=== PATIENT | female | born 1950 | race Caucasian/White ===

== ENCOUNTER 2021-04-10 18:03 | Inpatient (IN) | payer OTHER ==
[2021-04-10] MEDS ORDERED: SODIUM CHLORIDE 0.9% 500 ML INFUS.BAG IV ONE (18:43)
[2021-04-10 19:03] LABS: VENOUS BASE EXCESS 1.8 mmol/L (-2-2); VENOUS O2 SATURATION 33.1 % (70-80); VENOUS PCO2 41.4 mmHg (38-52); VENOUS PH 7.423 (7.310-7.410)
[2021-04-10 19:05] LABS: BASO % 0.8 % (0-2.0); EOS % 1.2 % (0-4.5); HEMOGLOBIN 12.9 GM/dL (10.7-15.3); LYMPH % 9.6 % (8-40); MCH 31.2 pg (25.7-33.7); MEAN CELL VOLUME 91.7 fl (80-96); MEAN PLT VOLUME 9.2 fl (7.5-11.1); NEUT % 80.4 % (42.8-82.8); PLATELET COUNT 189 10^3/uL (134-434); RBC 4.15 M/mm3 (3.60-5.2); RDW 13.2 % (11.6-15.6); WHITE BLOOD COUNT 6.5 K/mm3 (4.0-10.0)
[2021-04-10 19:27] LABS: ALBUMIN 3.6 g/dl (3.4-5.0); BLOOD UREA NITROGEN 18.5 mg/dL (7-18); CALCIUM 9.4 mg/dL (8.5-10.1)
[2021-04-10 19:30] LABS: CREATININE 1.1 mg/dL (0.55-1.3)
[2021-04-10 19:32] LABS: BILIRUBIN,TOTAL 0.6 mg/dL (0.2-1); TOT PROT 7.5 g/dl (6.4-8.2)
[2021-04-10] MEDS ORDERED: CEFTRIAXONE 1,000 MG in DEXTROSE 5%-WATER - 50 ML IVPB ONE (20:20)
[2021-04-10 20:22] LABS: EPI CELLS 12 /uL (0-25.1); HYALINE CASTS 4 /uL (0-3.1); URINE APPEARANCE CLEAR; URINE BACTERIA >9,000 /uL (0-1359); URINE BILIRUBIN NEGATIVE (NEGATIVE); URINE COLOR YELLOW; URINE GLUCOSE (UA) NEGATIVE (NEGATIVE); URINE KETONE NEGATIVE (NEGATIVE); URINE LEUK ESTERASE 2+ (NEGATIVE); URINE NITRITE POSITIVE (NEGATIVE); URINE PROTEIN TRACE (NEGATIVE); URINE RBC 23 /uL (0-23.9); URINE UROBILINOGEN 0.2 mg/dL (0.2-1.0); URINE WBC 145 /uL (0-25.8)
[2021-04-10] MEDS ORDERED: ACETAMINOPHEN 1000 MG/100 ML BAG IVPB ONE (20:22)
[2021-04-10] MEDS ORDERED: ASPIRIN 81 MG CHEWABLE TABLETS PO ONE (20:23)
[2021-04-10 20:26] LABS: INR 1.12 (0.83-1.09); PROTHROMBIN TIME (PATIENT) 12.9 SEC (9.7-13.0)
[2021-04-10 20:29] LABS: ACTIVATED PTT 26.1 SECONDS (25.2-36.5)
[2021-04-10] MEDS ORDERED: CEFTRIAXONE 1 GM/50 ML BAG ONE (20:34)
[2021-04-10] MEDS ORDERED: ASPIRIN 81 MG CHEWABLE TABLETS ONE (20:34)
[2021-04-10] MEDS ORDERED: ACETAMINOPHEN INJECTION 100 ML IVPB ONE (20:34)
[2021-04-11 02:22] VITALS: BMI 28.3
[2021-04-11 07:10] LABS: HEMATOCRIT 38.5 % (32.4-45.2); HEMOGLOBIN 12.7 GM/dL (10.7-15.3); MCH 30.6 pg (25.7-33.7); MEAN CELL VOLUME 92.8 fl (80-96); MEAN PLT VOLUME 10.1 fl (7.5-11.1); PLATELET COUNT 183 10^3/uL (134-434); RBC 4.15 M/mm3 (3.60-5.2); RDW 13.6 % (11.6-15.6); WHITE BLOOD COUNT 6.5 K/mm3 (4.0-10.0)
[2021-04-11 07:30] LABS: CALCIUM 8.8 mg/dL (8.5-10.1)
[2021-04-11 07:33] LABS: ALBUMIN 3.2 g/dl (3.4-5.0); BLOOD UREA NITROGEN 14.9 mg/dL (7-18)
[2021-04-11 07:34] LABS: CREATININE 0.9 mg/dL (0.55-1.3)
[2021-04-11 07:35] LABS: TOT PROT 6.9 g/dl (6.4-8.2)
[2021-04-11 07:36] LABS: BILIRUBIN,TOTAL 0.8 mg/dL (0.2-1)
[2021-04-11] MEDS ORDERED: cefTRIAXone SODIUM 1 GM VIAL ONE (09:11)
[2021-04-11] MEDS ORDERED: DEXTROSE 5%-WATER - 50 ML IVPB ONE ×3 (09:12→17:16)
[2021-04-11] MEDS: MIRTAZAPINE 15 MG TABLET (FP) PO SCH ×2 (09:31→22:16)
[2021-04-11] MEDS: BACLOFEN 10 MG TABLET (FP) PO SCH (09:31)
[2021-04-11] MEDS: ASPIRIN 325 MG TABLET PO SCH (09:31)
[2021-04-11] MEDS: ENOXAPARIN NA (PORCINE) 40 MG/0.4 ML DISP.SYRIN SQ SCH (09:31)
[2021-04-11] MEDS: HYDROCHLOROTHIAZIDE 12.5 MG CAPSULE (FP) PO SCH (09:31)
[2021-04-11] MEDS: QUEtiapine FUMARATE 25 MG TABLET PO SCH ×2 (09:31→22:16)
[2021-04-11] MEDS ORDERED: PNEUMOC 13-VAL CONJ-DIP CRM/PF 0.5 ML DISP.SYRIN IM ONE (10:00)
[2021-04-11] MEDS ORDERED: CEFTRIAXONE 1 GM in DEXTROSE 5%-WATER - 50 ML IVPB SCH (10:00)
[2021-04-11] MEDS ORDERED: PIPERACILLIN/TAZOBACTAM 3.375 GM VIAL IVPB ONE ×2 (12:25→17:16)
[2021-04-11] MEDS: PIPERACILLIN/TAZOB 3.375 GM 3.375 GM in DEXTROSE 5%-WATER - 50 ML IVPB SCH ×2 (12:25→17:19)
[2021-04-11] MEDS ORDERED: ACETAMINOPHEN 325 MG TABLET (FP) PO PRN (18:09)
[2021-04-11] MEDS: DONEPEZIL HCL 5 MG TABLET (FP) PO SCH (22:16)
[2021-04-12] MEDS ORDERED: DEXTROSE 5%-WATER - 50 ML IVPB ONE ×3 (00:59→17:06)
[2021-04-12] MEDS ORDERED: PIPERACILLIN/TAZOBACTAM 3.375 GM VIAL IVPB ONE ×3 (00:59→17:06)
[2021-04-12] MEDS: PIPERACILLIN/TAZOB 3.375 GM 3.375 GM in DEXTROSE 5%-WATER - 50 ML IVPB SCH ×3 (01:07→17:10)
[2021-04-12] MEDS: MIRTAZAPINE 15 MG TABLET (FP) PO SCH ×2 (09:08→20:59)
[2021-04-12] MEDS: HYDROCHLOROTHIAZIDE 12.5 MG CAPSULE (FP) PO SCH (09:08)
[2021-04-12] MEDS: ASPIRIN 325 MG TABLET PO SCH (09:09)
[2021-04-12] MEDS: BACLOFEN 10 MG TABLET (FP) PO SCH (09:09)
[2021-04-12] MEDS: QUEtiapine FUMARATE 25 MG TABLET PO SCH ×2 (09:10→20:59)
[2021-04-12] MEDS: ENOXAPARIN NA (PORCINE) 40 MG/0.4 ML DISP.SYRIN SQ SCH (09:10)
[2021-04-12] MEDS: CARBIDOPA/LEVODOPA 10/100 TABLET (FP) PO SCH ×2 (14:02→21:30)
[2021-04-12] MEDS: DONEPEZIL HCL 5 MG TABLET (FP) PO SCH (21:00)
[2021-04-13] MEDS ORDERED: DEXTROSE 5%-WATER - 50 ML IVPB ONE ×2 (01:44→08:03)
[2021-04-13] MEDS ORDERED: PIPERACILLIN/TAZOBACTAM 3.375 GM VIAL IVPB ONE ×2 (01:44→08:03)
[2021-04-13] MEDS: PIPERACILLIN/TAZOB 3.375 GM 3.375 GM in DEXTROSE 5%-WATER - 50 ML IVPB SCH ×2 (01:47→09:05)
[2021-04-13] MEDS: CARBIDOPA/LEVODOPA 10/100 TABLET (FP) PO SCH ×3 (06:17→21:39)
[2021-04-13] MEDS: MIRTAZAPINE 15 MG TABLET (FP) PO SCH ×2 (09:04→21:05)
[2021-04-13] MEDS: HYDROCHLOROTHIAZIDE 12.5 MG CAPSULE (FP) PO SCH (09:04)
[2021-04-13] MEDS: BACLOFEN 10 MG TABLET (FP) PO SCH (09:04)
[2021-04-13] MEDS: ASPIRIN 325 MG TABLET PO SCH (09:04)
[2021-04-13] MEDS: ENOXAPARIN NA (PORCINE) 40 MG/0.4 ML DISP.SYRIN SQ SCH (09:05)
[2021-04-13] MEDS: QUEtiapine FUMARATE 25 MG TABLET PO SCH ×2 (09:05→21:07)
[2021-04-13] MEDS: CEFAZOLIN 2 GM in DEXTROSE 5%-WATER 100 ML IVPB SCH (17:44)
[2021-04-13] MEDS: DONEPEZIL HCL 5 MG TABLET (FP) PO SCH (21:07)
[2021-04-14] MEDS: CEFAZOLIN 2 GM in DEXTROSE 5%-WATER 100 ML IVPB SCH ×3 (01:07→17:37)
[2021-04-14] MEDS: CARBIDOPA/LEVODOPA 10/100 TABLET (FP) PO SCH ×6 (05:53→21:27)
[2021-04-14 07:44] LABS: EOS % 3.8 % (0-4.5); HEMATOCRIT 38.6 % (32.4-45.2); HEMOGLOBIN 12.8 GM/dL (10.7-15.3); LYMPH % 22.9 % (8-40); MCH 30.4 pg (25.7-33.7); MCHC 33.1 g/dl (32.0-36.0); MEAN CELL VOLUME 91.8 fl (80-96); MEAN PLT VOLUME 10.1 fl (7.5-11.1); MONO % 12.9 % (3.8-10.2); NEUT % 59.4 % (42.8-82.8); PLATELET COUNT 237 10^3/uL (134-434); WHITE BLOOD COUNT 3.7 K/mm3 (4.0-10.0)
[2021-04-14 08:09] LABS: BLOOD UREA NITROGEN 16.3 mg/dL (7-18)
[2021-04-14 08:12] LABS: CREATININE 0.7 mg/dL (0.55-1.3)
[2021-04-14] MEDS ORDERED: DEXTROSE 5%-WATER 100 ML IVPB ONE ×2 (08:46→17:29)
[2021-04-14] MEDS ORDERED: ceFAZolin SODIUM 1 GM VIAL ONE ×2 (08:46→17:29)
[2021-04-14] MEDS: BACLOFEN 10 MG TABLET (FP) PO SCH (10:07)
[2021-04-14] MEDS: ASPIRIN 325 MG TABLET PO SCH (10:07)
[2021-04-14] MEDS: MIRTAZAPINE 15 MG TABLET (FP) PO SCH ×2 (10:08→21:20)
[2021-04-14] MEDS: QUEtiapine FUMARATE 25 MG TABLET PO SCH ×2 (10:08→21:20)
[2021-04-14] MEDS: ENOXAPARIN NA (PORCINE) 40 MG/0.4 ML DISP.SYRIN SQ SCH (10:08)
[2021-04-14] MEDS: HYDROCHLOROTHIAZIDE 12.5 MG CAPSULE (FP) PO SCH (10:09)
[2021-04-14] MEDS ORDERED: POTASSIUM CHLORIDE TABS 20 MEQ TABLET.ER (FP) PO ONE (16:06)
[2021-04-14] MEDS: DONEPEZIL HCL 5 MG TABLET (FP) PO SCH (21:20)
[2021-04-15] MEDS ORDERED: ceFAZolin SODIUM 1 GM VIAL ONE ×3 (01:12→09:35)
[2021-04-15] MEDS ORDERED: DEXTROSE 5%-WATER 100 ML IVPB ONE ×3 (01:12→09:35)
[2021-04-15] MEDS: CEFAZOLIN 2 GM in DEXTROSE 5%-WATER 100 ML IVPB SCH ×3 (01:14→18:10)
[2021-04-15] MEDS: CARBIDOPA/LEVODOPA 10/100 TABLET (FP) PO SCH ×3 (06:02→22:31)
[2021-04-15 07:55] LABS: BASO % 1.2 % (0-2.0); EOS % 5.9 % (0-4.5); HEMATOCRIT 37.4 % (32.4-45.2); HEMOGLOBIN 12.3 GM/dL (10.7-15.3); LYMPH % 25.9 % (8-40); MCH 30.6 pg (25.7-33.7); MEAN PLT VOLUME 10.1 fl (7.5-11.1); PLATELET COUNT 261 10^3/uL (134-434); RBC 4.02 M/mm3 (3.60-5.2); RDW 13.3 % (11.6-15.6); WHITE BLOOD COUNT 3.5 K/mm3 (4.0-10.0)
[2021-04-15 08:05] LABS: CALCIUM 9.3 mg/dL (8.5-10.1)
[2021-04-15 08:06] LABS: BLOOD UREA NITROGEN 17.4 mg/dL (7-18)
[2021-04-15 08:09] LABS: CREATININE 0.8 mg/dL (0.55-1.3)
[2021-04-15] MEDS: ASPIRIN 325 MG TABLET PO SCH (09:51)
[2021-04-15] MEDS: ENOXAPARIN NA (PORCINE) 40 MG/0.4 ML DISP.SYRIN SQ SCH (09:51)
[2021-04-15] MEDS: MIRTAZAPINE 15 MG TABLET (FP) PO SCH ×2 (09:51→22:32)
[2021-04-15] MEDS: QUEtiapine FUMARATE 25 MG TABLET PO SCH ×2 (09:52→22:32)
[2021-04-15] MEDS: BACLOFEN 10 MG TABLET (FP) PO SCH (09:52)
[2021-04-15] MEDS: HYDROCHLOROTHIAZIDE 12.5 MG CAPSULE (FP) PO SCH (09:52)
[2021-04-15] MEDS ORDERED: ACETAMINOPHEN 325 MG TABLET (FP) PO PRN (20:13)
[2021-04-15] MEDS: DONEPEZIL HCL 5 MG TABLET (FP) PO SCH (22:32)
[2021-04-16] MEDS ORDERED: DEXTROSE 5%-WATER 100 ML IVPB ONE (01:44)
[2021-04-16] MEDS ORDERED: ceFAZolin SODIUM 1 GM VIAL ONE (01:44)
[2021-04-16] MEDS: CEFAZOLIN 2 GM in DEXTROSE 5%-WATER 100 ML IVPB SCH ×3 (01:57→18:39)
[2021-04-16] MEDS: CARBIDOPA/LEVODOPA 10/100 TABLET (FP) PO SCH ×3 (05:24→22:24)
[2021-04-16] MEDS: ENOXAPARIN NA (PORCINE) 40 MG/0.4 ML DISP.SYRIN SQ SCH (09:16)
[2021-04-16] MEDS: MIRTAZAPINE 15 MG TABLET (FP) PO SCH ×2 (09:17→22:24)
[2021-04-16] MEDS: QUEtiapine FUMARATE 25 MG TABLET PO SCH ×2 (09:17→22:23)
[2021-04-16] MEDS: BACLOFEN 10 MG TABLET (FP) PO SCH (09:17)
[2021-04-16] MEDS: ASPIRIN 325 MG TABLET PO SCH (09:17)
[2021-04-16] MEDS: HYDROCHLOROTHIAZIDE 12.5 MG CAPSULE (FP) PO SCH (09:17)
[2021-04-16 09:23] LABS: EOS % 7.1 % (0-4.5); HEMATOCRIT 36.6 % (32.4-45.2); HEMOGLOBIN 12.4 GM/dL (10.7-15.3); LYMPH % 26.9 % (8-40); MCH 30.9 pg (25.7-33.7); MCHC 33.8 g/dl (32.0-36.0); MEAN CELL VOLUME 91.5 fl (80-96); MEAN PLT VOLUME 9.5 fl (7.5-11.1); MONO % 10.2 % (3.8-10.2); NEUT % 53.8 % (42.8-82.8); PLATELET COUNT 261 10^3/uL (134-434); RDW 13.2 % (11.6-15.6); WHITE BLOOD COUNT 4.2 K/mm3 (4.0-10.0)
[2021-04-16 10:13] LABS: CALCIUM 9.4 mg/dL (8.5-10.1)
[2021-04-16 10:14] LABS: BLOOD UREA NITROGEN 23.1 mg/dL (7-18)
[2021-04-16 10:17] LABS: CREATININE 0.9 mg/dL (0.55-1.3)
[2021-04-16] MEDS ORDERED: HALOPERIDOL LACTATE 5 MG/ML IM ONE (16:13)
[2021-04-16] MEDS: DONEPEZIL HCL 5 MG TABLET (FP) PO SCH (22:23)
[2021-04-17] MEDS ORDERED: DEXTROSE 5%-WATER 100 ML IVPB ONE ×2 (00:59→09:59)
[2021-04-17] MEDS ORDERED: ceFAZolin SODIUM 1 GM VIAL ONE ×2 (00:59→09:58)
[2021-04-17] MEDS: CEFAZOLIN 2 GM in DEXTROSE 5%-WATER 100 ML IVPB SCH ×2 (01:16→10:03)
[2021-04-17] MEDS: CARBIDOPA/LEVODOPA 10/100 TABLET (FP) PO SCH ×2 (05:53→14:09)
[2021-04-17] MEDS: MIRTAZAPINE 15 MG TABLET (FP) PO SCH (10:03)
[2021-04-17] MEDS: ASPIRIN 325 MG TABLET PO SCH (10:04)
[2021-04-17] MEDS: QUEtiapine FUMARATE 25 MG TABLET PO SCH (10:04)
[2021-04-17] MEDS: HYDROCHLOROTHIAZIDE 12.5 MG CAPSULE (FP) PO SCH (10:04)
[2021-04-17] MEDS: BACLOFEN 10 MG TABLET (FP) PO SCH (10:05)
[2021-04-17] MEDS: ENOXAPARIN NA (PORCINE) 40 MG/0.4 ML DISP.SYRIN SQ SCH (10:05)
[2021-04-17 11:15] LABS: BASO % 1.3 % (0-2.0); EOS % 4.6 % (0-4.5); HEMATOCRIT 39.6 % (32.4-45.2); HEMOGLOBIN 13.2 GM/dL (10.7-15.3); LYMPH % 19.1 % (8-40); MCH 30.6 pg (25.7-33.7); MCHC 33.3 g/dl (32.0-36.0); MEAN CELL VOLUME 91.8 fl (80-96); MONO % 9.5 % (3.8-10.2); NEUT % 65.5 % (42.8-82.8); PLATELET COUNT 315 10^3/uL (134-434); RBC 4.32 M/mm3 (3.60-5.2); RDW 12.9 % (11.6-15.6)
[2021-04-17 11:39] LABS: CREATININE 0.8 mg/dL (0.55-1.3)
[2021-04-17 13:51] VITALS: BP 153/75; PULSE 82; TEMP 98.8
== END 2021-04-17 17:16 | disposition home or self-care (01) | DRG 871 ==
LOC: JER 18:03 → JERBED 20:42 → J4W 04-11 01:55 → J5S 04-15 20:06
PROVIDERS: ADMIT Hospitalist
DX: A41.51 Sepsis due to Escherichia coli [E. coli] (principal); G92.9 Unspecified toxic encephalopathy; I24.8 Other forms of acute ischemic heart disease; N39.0 Urinary tract infection, site not specified; J98.11 Atelectasis; R44.3 Hallucinations, unspecified; F02.80 Dementia in other diseases classified elsewhere, unspecified severity, without behavioral disturbance, psychotic disturbance, mood disturbance, and anxiety; I10 Essential (primary) hypertension; G30.9 Alzheimer's disease, unspecified; E04.9 Nontoxic goiter, unspecified; G20 Parkinson's disease; R32 Unspecified urinary incontinence; E87.6 Hypokalemia; D72.819 Decreased white blood cell count, unspecified
CPT/HCPCS: 36415; 70450-TC; 71045-TC-FY; 76775-TC; 80048; 80053; 80061; 81003; 82803; 83036; 83605; 83735; 84100; 84439; 84443; 84484; 85025; 85027; 85610; 85730; 87040; 87086; 87186; 87804; 90670; 93005; 93010; 93306-TC; 97116-GP; 97161-GP; 99285-25; C9803; J0475; U0003; U0005

== ENCOUNTER 2021-12-29 17:41 | Observation (INO) | payer OTHER ==
[2021-12-29 18:04] VITALS: BMI 29.2
[2021-12-29 20:20] LABS: BASO % 0.3 % (0-2.0); EOS % 3.4 % (0-4.5); HEMATOCRIT 40.3 % (32.4-45.2); HEMOGLOBIN 13.4 GM/dL (10.7-15.3); LYMPH % 27.4 % (8-40); MCH 31.6 pg (25.7-33.7); MCHC 33.3 g/dl (32.0-36.0); MEAN CELL VOLUME 94.7 fl (80-96); MEAN PLT VOLUME 9.4 fl (7.5-11.1); MONO % 8.5 % (3.8-10.2); NEUT % 60.4 % (42.8-82.8); PLATELET COUNT 238 10^3/uL (134-434); RBC 4.26 M/mm3 (3.60-5.2); RDW 13.3 % (11.6-15.6); WHITE BLOOD COUNT 5.7 K/mm3 (4.0-10.0)
[2021-12-29 20:23] LABS: EPI CELLS 11 /uL (0-25.1); HYALINE CASTS 1 /uL (0-3.1); PH,URINE 5.5 (5.0-8.0); URINE APPEARANCE CLEAR; URINE BACTERIA 20 /uL (0-1359); URINE BILIRUBIN NEGATIVE (NEGATIVE); URINE COLOR YELLOW; URINE GLUCOSE (UA) NEGATIVE (NEGATIVE); URINE KETONE NEGATIVE (NEGATIVE); URINE LEUK ESTERASE TRACE (NEGATIVE); URINE NITRITE NEGATIVE (NEGATIVE); URINE PROTEIN NEGATIVE (NEGATIVE); URINE RBC 7 /uL (0-23.9); URINE UROBILINOGEN 0.2 mg/dL (0.2-1.0); URINE WBC 17 /uL (0-25.8)
[2021-12-29 20:43] LABS: CALCIUM 9.6 mg/dL (8.5-10.1)
[2021-12-29 20:44] LABS: ALBUMIN 4.1 g/dl (3.4-5.0)
[2021-12-29 20:47] LABS: CREATININE 1.2 mg/dL (0.55-1.3)
[2021-12-29 20:48] LABS: BILIRUBIN,TOTAL 0.3 mg/dL (0.2-1)
[2021-12-29 20:49] LABS: TOT PROT 7.8 g/dl (6.4-8.2)
[2021-12-30 00:43] LABS: PH,URINE 5.5 (5.0-8.0); URINE APPEARANCE CLEAR; URINE BILIRUBIN NEGATIVE (NEGATIVE); URINE COLOR YELLOW; URINE GLUCOSE (UA) NEGATIVE (NEGATIVE); URINE KETONE NEGATIVE (NEGATIVE); URINE LEUK ESTERASE NEGATIVE (NEGATIVE); URINE NITRITE NEGATIVE (NEGATIVE); URINE PROTEIN NEGATIVE (NEGATIVE); URINE UROBILINOGEN 0.2 mg/dL (0.2-1.0)
[2021-12-30] MEDS ORDERED: SODIUM CHLORIDE 1,000 ML IV SCH (01:00)
[2021-12-30] MEDS ORDERED: CEFTRIAXONE 1 GM/50 ML BAG ONE ×2 (01:26→10:02)
[2021-12-30] MEDS: CEFTRIAXONE 1 GM in DEXTROSE 5%-WATER - 50 ML IVPB SCH ×2 (01:35→10:13)
[2021-12-30 07:29] LABS: BASO % 1.1 % (0-2.0); EOS % 4.6 % (0-4.5); HEMATOCRIT 37.5 % (32.4-45.2); HEMOGLOBIN 12.7 GM/dL (10.7-15.3); LYMPH % 38.1 % (8-40); MCHC 33.9 g/dl (32.0-36.0); MEAN CELL VOLUME 94.5 fl (80-96); MEAN PLT VOLUME 9.8 fl (7.5-11.1); MONO % 8.6 % (3.8-10.2); NEUT % 47.6 % (42.8-82.8); PLATELET COUNT 212 10^3/uL (134-434); RBC 3.96 M/mm3 (3.60-5.2); WHITE BLOOD COUNT 4.4 K/mm3 (4.0-10.0)
[2021-12-30 08:16] LABS: CALCIUM 9.1 mg/dL (8.5-10.1)
[2021-12-30 08:17] LABS: ALBUMIN 3.5 g/dl (3.4-5.0); BLOOD UREA NITROGEN 19.3 mg/dL (7-18); MAGNESIUM 2.2 mg/dL (1.8-2.4)
[2021-12-30 08:20] LABS: PHOSPHOROUS 3.7 mg/dL (2.5-4.9)
[2021-12-30 08:21] LABS: BILIRUBIN,TOTAL 0.4 mg/dL (0.2-1); TOT PROT 6.9 g/dl (6.4-8.2)
[2021-12-30 09:47] VITALS: RESP 18
[2021-12-30] MEDS ORDERED: ENOXAPARIN NA (PORCINE) 40 MG/0.4 ML DISP.SYRIN SQ ONE (10:02)
[2021-12-30] MEDS: ENOXAPARIN NA (PORCINE) 40 MG/0.4 ML DISP.SYRIN SQ SCH (10:13)
[2021-12-30] MEDS: CARBIDOPA/LEVODOPA 10/100 TABLET (FP) PO SCH (21:59)
[2021-12-30] MEDS ORDERED: MIRTAZAPINE 15 MG TABLET (FP) PO SCH (22:00)
[2021-12-31] MEDS: CARBIDOPA/LEVODOPA 10/100 TABLET (FP) PO SCH ×3 (06:34→14:46)
[2021-12-31] MEDS: ENOXAPARIN NA (PORCINE) 40 MG/0.4 ML DISP.SYRIN SQ SCH (09:45)
[2021-12-31] MEDS ORDERED: ESCITALOPRAM OXALATE 10 MG TABLET PO SCH (10:00)
[2021-12-31] MEDS ORDERED: DONEPEZIL HCL 5 MG TABLET (FP) PO SCH (10:00)
[2021-12-31] MEDS ORDERED: HYDROCHLOROTHIAZIDE 12.5 MG CAPSULE (FP) PO SCH (10:00)
[2021-12-31] MEDS: CEFTRIAXONE 1 GM in DEXTROSE 5%-WATER - 50 ML IVPB SCH (10:57)
[2021-12-31 15:15] VITALS: BP 122/68; PULSE 81; TEMP 97.6
== END 2021-12-31 16:52 | disposition home or self-care (01) ==
LOC: JER 17:41 → JERBED 21:45 → J5S 12-30 17:43
PROVIDERS: ADMIT Internal Medicine; ATTEND Internal Medicine
PROC: 3E023GC Introduction of Other Therapeutic Substance into Muscle, Percutaneous Approach (ICD-10-PCS; principal; 2021-12-29)
PROC: 3E0337Z Introduction of Electrolytic and Water Balance Substance into Peripheral Vein, Percutaneous Approach (ICD-10-PCS; 2021-12-29)
DX: G30.9 Alzheimer's disease, unspecified (principal); G20 Parkinson's disease; R41.82 Altered mental status, unspecified; I10 Essential (primary) hypertension; F02.80 Dementia in other diseases classified elsewhere, unspecified severity, without behavioral disturbance, psychotic disturbance, mood disturbance, and anxiety; R31.9 Hematuria, unspecified; N39.0 Urinary tract infection, site not specified; R44.1 Visual hallucinations; Z87.891 Personal history of nicotine dependence
CPT/HCPCS: 36415; 70450-TC; 71045-TC-FY; 80053; 81003; 82607; 83735; 84100; 84443; 84484; 85025; 87086; 87186; 93005; 93010; 96360; 96372; 97116-GP; 97161-GP; 99285-25; C9803-CS; G0378; U0003; U0005

== ENCOUNTER 2022-06-25 14:09 | Observation (INO) | payer OTHER ==
[2022-06-25 14:19] VITALS: BMI 29.2
[2022-06-25] MEDS ORDERED: SODIUM CHLORIDE 0.9% 500 ML INFUS.BAG IV ONE (15:23)
[2022-06-25 16:07] LABS: BASO % 0.9 % (0-2.0); EOS % 2.4 % (0-4.5); HEMATOCRIT 36.4 % (32.4-45.2); HEMOGLOBIN 12.6 GM/dL (10.7-15.3); LYMPH % 24.1 % (8-40); MCH 31.9 pg (25.7-33.7); MCHC 34.7 g/dl (32.0-36.0); MEAN CELL VOLUME 91.8 fl (80-96); MEAN PLT VOLUME 11.1 fl (7.5-11.1); MONO % 7.8 % (3.8-10.2); NEUT % 64.8 % (42.8-82.8); PLATELET COUNT 250 10^3/uL (134-434); RBC 3.97 M/mm3 (3.60-5.2); RDW 13.3 % (11.6-15.6)
[2022-06-25 16:09] LABS: EPI CELLS 35 /uL (0-25.1); HYALINE CASTS 4 /uL (0-3.1); PH,URINE 5.5 (5.0-8.0); URINE APPEARANCE CLEAR; URINE BACTERIA 6 /uL (0-1359); URINE BILIRUBIN NEGATIVE (NEGATIVE); URINE COLOR YELLOW; URINE GLUCOSE (UA) NEGATIVE (NEGATIVE); URINE KETONE TRACE (NEGATIVE); URINE LEUK ESTERASE TRACE (NEGATIVE); URINE NITRITE NEGATIVE (NEGATIVE); URINE PROTEIN NEGATIVE (NEGATIVE); URINE RBC 18 /uL (0-23.9); URINE UROBILINOGEN 0.2 mg/dL (0.2-1.0); URINE WBC 48 /uL (0-25.8)
[2022-06-25] MEDS ORDERED: CEFTRIAXONE 1,000 MG in DEXTROSE 5%-WATER - 50 ML IVPB ONE (16:16)
[2022-06-25 16:27] LABS: CALCIUM 9.8 mg/dL (8.5-10.1)
[2022-06-25] MEDS ORDERED: CEFTRIAXONE 1 GM/50 ML BAG ONE (16:30)
[2022-06-25 16:31] LABS: CREATININE 1.1 mg/dL (0.55-1.3)
[2022-06-25 16:32] LABS: BILIRUBIN,TOTAL 0.3 mg/dL (0.2-1); TOT PROT 7.8 g/dl (6.4-8.2)
[2022-06-25] MEDS ORDERED: PATIENT'S OWN MEDICATION (NON-FORMULARY) (Meloxicam 15 MG Tablet) PO PRN (17:36)
[2022-06-25] MEDS ORDERED: MIRTAZAPINE 15 MG TABLET (FP) PO SCH (22:00)
[2022-06-25] MEDS ORDERED: QUEtiapine FUMARATE 25 MG TABLET PO SCH (22:00)
[2022-06-25] MEDS ORDERED: ATORVASTATIN CA 20 MG TABLET (FP) PO SCH (22:00)
[2022-06-25] MEDS: CARBIDOPA/LEVODOPA 10/100 TABLET (FP) PO SCH (22:43)
[2022-06-26] MEDS: CARBIDOPA/LEVODOPA 10/100 TABLET (FP) PO SCH ×2 (05:19→13:22)
[2022-06-26 09:10] LABS: BASO % 1.7 % (0-2.0); EOS % 4.1 % (0-4.5); LYMPH % 31.8 % (8-40); MCH 31.8 pg (25.7-33.7); MCHC 34.2 g/dl (32.0-36.0); MEAN CELL VOLUME 93.2 fl (80-96); MEAN PLT VOLUME 10.1 fl (7.5-11.1); MONO % 9.7 % (3.8-10.2); NEUT % 52.7 % (42.8-82.8); PLATELET COUNT 217 10^3/uL (134-434); RBC 3.76 M/mm3 (3.60-5.2); RDW 13.1 % (11.6-15.6); WHITE BLOOD COUNT 3.9 K/mm3 (4.0-10.0)
[2022-06-26 09:32] LABS: ALBUMIN 3.3 g/dl (3.4-5.0); BLOOD UREA NITROGEN 17.7 mg/dL (7-18); CALCIUM 8.9 mg/dL (8.5-10.1)
[2022-06-26 09:37] LABS: BILIRUBIN,TOTAL 1.2 mg/dL (0.2-1)
[2022-06-26 09:38] LABS: PHOSPHOROUS 3.9 mg/dL (2.5-4.9)
[2022-06-26 09:40] LABS: TOT PROT 6.5 g/dl (6.4-8.2)
[2022-06-26] MEDS ORDERED: ESCITALOPRAM OXALATE 10 MG TABLET PO SCH (10:00)
[2022-06-26] MEDS ORDERED: ENOXAPARIN NA (PORCINE) 40 MG/0.4 ML DISP.SYRIN SQ SCH (10:00)
[2022-06-26] MEDS ORDERED: DONEPEZIL HCL 5 MG TABLET (FP) PO SCH (10:00)
[2022-06-26] MEDS ORDERED: HYDROCHLOROTHIAZIDE 12.5 MG CAPSULE (FP) PO SCH (10:00)
[2022-06-26] MEDS ORDERED: SODIUM CHLORIDE 1,000 ML IV STA ×2 (12:20→12:21)
[2022-06-26] MEDS ORDERED: SODIUM CHLORIDE 500 ML IV STA (12:22)
[2022-06-26 13:49] LABS: ALBUMIN 3.6 g/dl (3.4-5.0); CALCIUM 9.5 mg/dL (8.5-10.1)
[2022-06-26 14:00] LABS: BILIRUBIN,TOTAL 0.5 mg/dL (0.2-1)
[2022-06-26 16:10] VITALS: BP 121/55; PULSE 70; RESP 18; TEMP 97.6
== END 2022-06-26 17:31 | disposition home or self-care (01) ==
LOC: JER 14:09 → JERBED 16:38 → J5S 19:33
PROVIDERS: ADMIT Internal Medicine; ATTEND Student in an Organized Health Care Education/Training Program
PROC: 3E03329 Introduction of Other Anti-infective into Peripheral Vein, Percutaneous Approach (ICD-10-PCS; principal; 2022-06-25)
PROC: 3E023GC Introduction of Other Therapeutic Substance into Muscle, Percutaneous Approach (ICD-10-PCS; 2022-06-25)
PROC: 3E0337Z Introduction of Electrolytic and Water Balance Substance into Peripheral Vein, Percutaneous Approach (ICD-10-PCS; 2022-06-25)
DX: N39.0 Urinary tract infection, site not specified (principal); R41.82 Altered mental status, unspecified; Z87.891 Personal history of nicotine dependence; I10 Essential (primary) hypertension; G20 Parkinson's disease; G30.9 Alzheimer's disease, unspecified; F02.80 Dementia in other diseases classified elsewhere, unspecified severity, without behavioral disturbance, psychotic disturbance, mood disturbance, and anxiety
CPT/HCPCS: 0241U-QW; 36415; 70450-TC; 71045-TC-FY; 80053; 81003; 82550; 82962; 83605; 83735; 84100; 84443; 84484; 85025; 87086; 93005; 93010; 96361; 96365; 96372; 99285-25; G0378

== ENCOUNTER 2023-09-01 14:18 | Emergency (ER) | payer OTHER ==
[2023-09-01 14:28] VITALS: RESP 18; BMI 35.4
[2023-09-01 15:33] LABS: BASO % 1.1 % (0-2.0); EOS % 1.5 % (0-4.5); HEMOGLOBIN 13.7 GM/dL (10.7-15.3); LYMPH % 17.7 % (8-40); MCHC 33.4 g/dl (32.0-36.0); MEAN CELL VOLUME 92.8 fl (80-96); MEAN PLT VOLUME 9.5 fl (7.5-11.1); MONO % 6.7 % (3.8-10.2); PLATELET COUNT 245 10^3/uL (134-434); RBC 4.42 M/mm3 (3.60-5.2); RDW 12.8 % (11.6-15.6); WHITE BLOOD COUNT 4.9 K/mm3 (4.0-10.0)
[2023-09-01 15:52] LABS: POTASSIUM 5.5 mmol/L (3.5-5.1)
[2023-09-01 15:54] LABS: CALCIUM 9.7 mg/dL (8.5-10.1)
[2023-09-01 15:55] LABS: BLOOD UREA NITROGEN 14.3 mg/dL (7-18); MAGNESIUM 2.2 mg/dL (1.8-2.4)
[2023-09-01 15:58] LABS: PHOSPHOROUS 3.9 mg/dL (2.5-4.9)
[2023-09-01 15:59] LABS: BILIRUBIN,TOTAL 0.6 mg/dL (0.2-1)
[2023-09-01] MEDS: SODIUM CHLORIDE 0.9% 500 ML INFUS.BAG IV ONE (16:02)
[2023-09-01 18:31] LABS: URINE APPEARANCE CLEAR; URINE BILIRUBIN NEGATIVE (NEGATIVE); URINE COLOR YELLOW; URINE GLUCOSE (UA) NEGATIVE (NEGATIVE); URINE KETONE NEGATIVE (NEGATIVE); URINE LEUK ESTERASE NEGATIVE (NEGATIVE); URINE NITRITE NEGATIVE (NEGATIVE); URINE PROTEIN NEGATIVE (NEGATIVE); URINE UROBILINOGEN 0.2 mg/dL (0.2-1.0)
[2023-09-01 18:57] LABS: POTASSIUM 4.3 mmol/L (3.5-5.1)
[2023-09-01 18:58] LABS: CALCIUM 8.8 mg/dL (8.5-10.1)
[2023-09-01 18:59] LABS: BLOOD UREA NITROGEN 12.5 mg/dL (7-18)
[2023-09-01 19:02] LABS: CREATININE 1.1 mg/dL (0.55-1.3)
[2023-09-01 19:43] VITALS: BP 110/76; PULSE 62; TEMP 98.1
== END 2023-09-01 19:43 | disposition home or self-care (01) ==
LOC: JER 14:18
DX: R53.1 Weakness (principal); R53.83 Other fatigue; R11.0 Nausea; R63.0 Anorexia; R25.2 Cramp and spasm; Z20.822 Contact with and (suspected) exposure to COVID-19
CPT/HCPCS: 0241U-QW; 36415; 71045-TC-FY; 80048; 80053; 81003; 82550; 83735; 84100; 84484; 85025; 87077; 87086; 93005; 93010; 93971-TC; 99285-25

== ENCOUNTER 2023-11-07 12:51 | Emergency (ER) | payer OTHER ==
[2023-11-07 13:01] VITALS: BP 126/73; PULSE 61; RESP 18; TEMP 97.6; BMI 28.0
[2023-11-07 14:38] LABS: EPI CELLS 5 /uL (0-25.1); HYALINE CASTS 0 /uL (0-3.1); URINE APPEARANCE CLEAR; URINE BACTERIA >9,000 /uL (0-1359); URINE BILIRUBIN NEGATIVE (NEGATIVE); URINE COLOR DK YELLOW; URINE GLUCOSE (UA) NEGATIVE (NEGATIVE); URINE KETONE TRACE (NEGATIVE); URINE LEUK ESTERASE TRACE (NEGATIVE); URINE NITRITE POSITIVE (NEGATIVE); URINE PROTEIN NEGATIVE (NEGATIVE); URINE RBC 6 /uL (0-23.9); URINE UROBILINOGEN 0.2 mg/dL (0.2-1.0); URINE WBC 42 /uL (0-25.8)
[2023-11-07] MEDS ORDERED: NITROFURANTOIN MACROCRYSTAL 50 MG CAPSULE (FP) ONE (14:55)
[2023-11-07] MEDS: NITROFURANTOIN MACROCRYSTAL 50 MG CAPSULE (FP) PO SCH (14:56)
== END 2023-11-07 15:09 | disposition home or self-care (01) ==
LOC: JER 12:51
DX: R41.0 Disorientation, unspecified (principal); N39.0 Urinary tract infection, site not specified; R44.3 Hallucinations, unspecified; R63.0 Anorexia; Z20.822 Contact with and (suspected) exposure to COVID-19
CPT/HCPCS: 0241U-QW; 81003; 82962; 87086; 87186; 93005; 93010; 99284-25

== ENCOUNTER 2023-12-05 11:54 | Observation (INO) | payer OTHER ==
[2023-12-05 13:28] LABS: BASO % 1.1 % (0-2.0); HEMATOCRIT 42.4 % (32.4-45.2); HEMOGLOBIN 14.2 GM/dL (10.7-15.3); LYMPH % 24.2 % (8-40); MCH 31.3 pg (25.7-33.7); MCHC 33.5 g/dl (32.0-36.0); MEAN CELL VOLUME 93.4 fl (80-96); MEAN PLT VOLUME 9.8 fl (7.5-11.1); MONO % 8.6 % (3.8-10.2); NEUT % 63.1 % (42.8-82.8); PLATELET COUNT 255 10^3/uL (134-434); RBC 4.54 M/mm3 (3.60-5.2); RDW 13.9 % (11.6-15.6)
[2023-12-05 13:55] LABS: POTASSIUM 4.4 mmol/L (3.5-5.1)
[2023-12-05 13:57] LABS: CALCIUM 9.8 mg/dL (8.5-10.1)
[2023-12-05 13:58] LABS: BLOOD UREA NITROGEN 17.2 mg/dL (7-18)
[2023-12-05 14:02] LABS: CREATININE 0.9 mg/dL (0.55-1.3)
[2023-12-05 14:03] LABS: BILIRUBIN,TOTAL 0.6 mg/dL (0.2-1); TOT PROT 7.3 g/dl (6.4-8.2)
[2023-12-05 14:04] LABS: ALBUMIN 3.5 g/dl (3.4-5.0)
[2023-12-05 14:27] LABS: EPI CELLS >36 /uL (0-25.1); HYALINE CASTS 0 /uL (0-3.1); PH,URINE 5.5 (5.0-8.0); URINE APPEARANCE CLEAR; URINE BILIRUBIN 1+ (NEGATIVE); URINE COLOR DK YELLOW; URINE GLUCOSE (UA) NEGATIVE (NEGATIVE); URINE KETONE 1+ (NEGATIVE); URINE LEUK ESTERASE 1+ (NEGATIVE); URINE NITRITE POSITIVE (NEGATIVE); URINE PROTEIN 1+ (NEGATIVE); URINE RBC 20 /uL (0-23.9); URINE UROBILINOGEN 0.2 mg/dL (0.2-1.0); URINE WBC 66 /uL (0-25.8)
[2023-12-05] MEDS: CEFTRIAXONE 1,000 MG in DEXTROSE 5%-WATER - 50 ML IVPB ONE (15:01)
[2023-12-05] MEDS: SODIUM CHLORIDE 0.9% 500 ML INFUS.BAG IV ONE (15:01)
[2023-12-05] MEDS ORDERED: CEFTRIAXONE 1 GM/50 ML BAG ONE (15:02)
[2023-12-05] MEDS ORDERED: PATIENT'S OWN MEDICATION (NON-FORMULARY) (Donepezil Hcl [Donepezil Hcl] 23 MG Tablet) PO SCH (22:00)
[2023-12-05] MEDS ORDERED: MIRTAZAPINE 15 MG TABLET (FP) ONE ×2 (22:05→22:06)
[2023-12-05] MEDS: MIRTAZAPINE 15 MG TABLET (FP) PO SCH (22:06)
[2023-12-05] MEDS: CARBIDOP 37.5MG/LEVODOPA 150MG/ENTACAPONE 200MG TABLET PO SCH (23:17)
[2023-12-06] MEDS: SODIUM CHLORIDE 1,000 ML IV SCH ×2 (01:45→18:10)
[2023-12-06 03:01] VITALS: RESP 18; BMI 24.6
[2023-12-06 09:17] LABS: POTASSIUM 3.8 mmol/L (3.5-5.1)
[2023-12-06 09:21] LABS: HEMATOCRIT 37.9 % (32.4-45.2); HEMOGLOBIN 12.8 GM/dL (10.7-15.3); MCH 31.3 pg (25.7-33.7); MCHC 33.8 g/dl (32.0-36.0); MEAN CELL VOLUME 92.6 fl (80-96); PLATELET COUNT 223 10^3/uL (134-434); RBC 4.09 M/mm3 (3.60-5.2); RDW 13.9 % (11.6-15.6); WHITE BLOOD COUNT 4.1 K/mm3 (4.0-10.0)
[2023-12-06 09:25] LABS: ALBUMIN 3.1 g/dl (3.4-5.0); BLOOD UREA NITROGEN 14.5 mg/dL (7-18); CALCIUM 9.3 mg/dL (8.5-10.1)
[2023-12-06 09:28] LABS: CREATININE 0.9 mg/dL (0.55-1.3)
[2023-12-06 09:30] LABS: BILIRUBIN,TOTAL 0.6 mg/dL (0.2-1); TOT PROT 6.2 g/dl (6.4-8.2)
[2023-12-06] MEDS: CEFTRIAXONE 1 GM in DEXTROSE 5%-WATER - 50 ML IVPB SCH (10:10)
[2023-12-06] MEDS: ENOXAPARIN NA (PORCINE) 40 MG/0.4 ML DISP.SYRIN SQ SCH (10:10)
[2023-12-06] MEDS ORDERED: SODIUM CHLORIDE 0.9% 500 ML INFUS.BAG IV ONE (17:49)
[2023-12-06] MEDS: SODIUM CHLORIDE 0.9% 250 ML INFUS.BAG IV ONE (18:09)
[2023-12-06] MEDS ORDERED: HALOPERIDOL LACTATE 5 MG/ML ONE (22:46)
[2023-12-06] MEDS: HALOPERIDOL LACTATE 5 MG/ML IM ONE (23:09)
[2023-12-07] MEDS ORDERED: HALOPERIDOL LACTATE 5 MG/ML IM PRN (02:30)
[2023-12-07 10:06] LABS: BASO % 0.7 % (0-2.0); EOS % 2.3 % (0-4.5); HEMATOCRIT 37.6 % (32.4-45.2); HEMOGLOBIN 12.6 GM/dL (10.7-15.3); LYMPH % 17.4 % (8-40); MCH 31.2 pg (25.7-33.7); MCHC 33.5 g/dl (32.0-36.0); MEAN CELL VOLUME 93.3 fl (80-96); MEAN PLT VOLUME 10.3 fl (7.5-11.1); MONO % 7.7 % (3.8-10.2); NEUT % 71.9 % (42.8-82.8); PLATELET COUNT 221 10^3/uL (134-434); RBC 4.03 M/mm3 (3.60-5.2); RDW 13.9 % (11.6-15.6); WHITE BLOOD COUNT 5.8 K/mm3 (4.0-10.0)
[2023-12-07 10:22] LABS: POTASSIUM 3.7 mmol/L (3.5-5.1)
[2023-12-07 10:28] LABS: CALCIUM 8.9 mg/dL (8.5-10.1)
[2023-12-07 10:29] LABS: BLOOD UREA NITROGEN 12.2 mg/dL (7-18)
[2023-12-07 10:32] LABS: CREATININE 0.8 mg/dL (0.55-1.3)
[2023-12-07] MEDS: CEFTRIAXONE 1 GM in DEXTROSE 5%-WATER - 50 ML IVPB ONE (15:35)
[2023-12-07] MEDS: SODIUM CHLORIDE 1,000 ML IV SCH (17:15)
[2023-12-08] MEDS: CEFTRIAXONE 1 GM in DEXTROSE 5%-WATER - 50 ML IVPB SCH (09:19)
[2023-12-08] MEDS: CARBIDOP 37.5MG/LEVODOPA 150MG/ENTACAPONE 200MG TABLET PO SCH (12:43)
[2023-12-08 14:40] VITALS: BP 97/58; PULSE 72; TEMP 98
[2023-12-08] MEDS: MIRTAZAPINE 15 MG TABLET (FP) PO SCH (15:09)
== END 2023-12-08 18:20 | disposition home or self-care (01) ==
LOC: JER 11:54 → INTOOBSV 14:46 → UNDOADMOB 14:46 → JERBED 14:46 → J6W 12-06 01:14 → JERBED 12-06 01:14 → J6W 12-06 11:17
PROVIDERS: ADMIT Internal Medicine; ATTEND Internal Medicine
PROC: 3E03329 Introduction of Other Anti-infective into Peripheral Vein, Percutaneous Approach (ICD-10-PCS; principal; 2023-12-06)
PROC: 3E023GC Introduction of Other Therapeutic Substance into Muscle, Percutaneous Approach (ICD-10-PCS; 2023-12-06)
PROC: 3E0337Z Introduction of Electrolytic and Water Balance Substance into Peripheral Vein, Percutaneous Approach (ICD-10-PCS; 2023-12-06)
DX: N39.0 Urinary tract infection, site not specified (principal); G20.A1 Parkinson's disease without dyskinesia, without mention of fluctuations; G30.9 Alzheimer's disease, unspecified; F02.80 Dementia in other diseases classified elsewhere, unspecified severity, without behavioral disturbance, psychotic disturbance, mood disturbance, and anxiety; I10 Essential (primary) hypertension; R77.8 Other specified abnormalities of plasma proteins
CPT/HCPCS: 36415; 71045-TC-FY; 80048; 80053; 81003; 82962; 84443; 85025; 85027; 87086; 93005; 93010; 96361; 96365; 96366; 96372; 97116-GP; 97161-GP; 99285-25; G0378

== ENCOUNTER 2023-12-29 11:17 | Emergency (ER) | payer OTHER ==
[2023-12-29 11:34] VITALS: BP 136/74; PULSE 66; RESP 18; TEMP 99.1; BMI 24.9
[2023-12-29 13:32] LABS: BASO % 0.9 % (0-2.0); EOS % 0.7 % (0-4.5); HEMATOCRIT 35.5 % (32.4-45.2); HEMOGLOBIN 11.8 GM/dL (10.7-15.3); LYMPH % 11.6 % (8-40); MCH 30.8 pg (25.7-33.7); MCHC 33.3 g/dl (32.0-36.0); MEAN CELL VOLUME 92.7 fl (80-96); MEAN PLT VOLUME 10.7 fl (7.5-11.1); MONO % 6.3 % (3.8-10.2); NEUT % 80.5 % (42.8-82.8); PLATELET COUNT 210 10^3/uL (134-434); RBC 3.83 M/mm3 (3.60-5.2); RDW 14.7 % (11.6-15.6); WHITE BLOOD COUNT 6.8 K/mm3 (4.0-10.0)
[2023-12-29] MEDS ORDERED: FAMOTIDINE 20 MG/50 ML IVPB 20 MG/50 ML MG IVPB ONE (13:43)
[2023-12-29] MEDS ORDERED: ONDANSETRON 4 MG/2 ML VIAL ONE (13:43)
[2023-12-29] MEDS ORDERED: DEXTROSE 50%-WATER 25 GM/50 ML DISP.SYRIN ONE (13:43)
[2023-12-29] MEDS ORDERED: ACETAMINOPHEN INJECTION 100 ML ONE (13:43)
[2023-12-29] MEDS: ACETAMINOPHEN 1000 MG/100 ML BAG IVPB ONE (13:58)
[2023-12-29] MEDS: DEXTROSE 50%-WATER - 25 GM/50 ML VIAL IVPUSH ONE (13:58)
[2023-12-29] MEDS: ONDANSETRON 4 MG/2 ML VIAL IVPUSH ONE (13:59)
[2023-12-29] MEDS: FAMOTIDINE 20 MG/50 ML IVPB 20 MG/50 ML MG IVPB ONE (13:59)
[2023-12-29 14:08] LABS: ALBUMIN 3.2 g/dl (3.4-5.0); CALCIUM 9.1 mg/dL (8.5-10.1)
[2023-12-29 14:09] LABS: BLOOD UREA NITROGEN 17.4 mg/dL (7-18)
[2023-12-29 14:12] LABS: CREATININE 0.9 mg/dL (0.55-1.3)
[2023-12-29 14:13] LABS: BILIRUBIN,TOTAL 0.8 mg/dL (0.2-1); TOT PROT 6.4 g/dl (6.4-8.2)
[2023-12-29 18:58] LABS: HIV INTERPRETATION NEGATIVE (NEGATIVE)
== END 2023-12-29 17:44 | disposition home or self-care (01) ==
LOC: JER 11:17
PROC: 3E033GC Introduction of Other Therapeutic Substance into Peripheral Vein, Percutaneous Approach (ICD-10-PCS; principal; 2023-12-29)
PROC: 3E033GC Introduction of Other Therapeutic Substance into Peripheral Vein, Percutaneous Approach (ICD-10-PCS; 2023-12-29)
PROC: 3E033GC Introduction of Other Therapeutic Substance into Peripheral Vein, Percutaneous Approach (ICD-10-PCS; 2023-12-29)
PROC: 3E033NZ Introduction of Analgesics, Hypnotics, Sedatives into Peripheral Vein, Percutaneous Approach (ICD-10-PCS; 2023-12-29)
DX: R11.2 Nausea with vomiting, unspecified (principal); R63.0 Anorexia; R30.0 Dysuria; Z20.822 Contact with and (suspected) exposure to COVID-19
CPT/HCPCS: 0241U-QW; 36415; 80053; 82962; 83735; 85025; 86803; 87389; 87522; 93005; 93010; 96365; 96375; 99284-25; J0131